=== PATIENT | female | born 1945 | race Caucasian/White ===

== ENCOUNTER 2016-08-04 16:09 | Emergency (ER) | payer MEDICARE, OTHER ==
--- NOTE | 2016-08-04 17:54 | Emergency Department Record ---
History of Present Illness - General Chief Complaint: Cough Stated Complaint: CHEST CONGESTION,COUGH Time Seen by Provider: 08/04/16 17:48 Source: Patient Mode of Arrival: Ambulatory Limitations: No limitations - History of Present Illness Initial Comments: 71 yo female presents with two days of cough, nasal congestion, body aches, productive sputum. It hurts her abdomen to cough. No blood in the sputum. She has not taken her temperature but reports chills. No vomiting. She has had diarrhea. No rash. She is not a smoker and not history of asthma. She had pneumonia many years ago. She did have the flu shot. MD Complaint: Cough, Nasal congestion, Sinus pain, Other Onset/Timin -: Days(s) Consistency: Intermittent - Related Data Home Medications Medication Instructions Recorded Confirmed Last Taken Escitalopram Oxalate [Lexapro] 10 mg PO DAILY 11/17/13 08/04/16 08/04/16 Pioglitazone HCl/Metformin HCl 30 - 1,000 each PO DAILY 11/17/13 08/04/16 [Actoplus Met 15 mg-500 mg Tab] Albuterol Sulfate [Proair Hfa] 1 - 2 puff IH .EVERY 4-6 HOURS PRN 06/04/1508/04 1 Day Ago Omeprazole [Prilosec] 20 mg PO DAILY 08/04/16 08/04/16 08/04/16 Previous Rx's Medication Instructions Recorded Azithromycin [Zithromax] 250 mg PO DAILY #6 tab 08/04/16 Allergies Allergy/AdvReac Type Severity Reaction Status Date / Time ketorolac tromethamine AdvReac DIZZINESS Verified 08/04/16 17:41 [From Toradol] Travel Screening - Travel/Exposure Within Last 30 Days Have you traveled within the last 30 days?: No - Travel/Exposure Within Last Year Have you traveled outside the [place] in the last year?: No - Additonal Travel Details Have you been exposed to anyone with a communicable illness?: No - Travel Symptoms Symptom Screening: None Review of Systems Constitutional: Reports: Chills, Fever, Malaise Eyes: Denies: Eye discharge ENT: Reports: Congestion. Denies: Epistaxis, Throat pain Respiratory: Reports: Cough, Dyspnea. Denies: Hemoptysis, Stridor, Wheezes Cardiovascular: Denies: Chest pain, Palpitations, Syncope Endocrine: Denies: Fatigue Gastrointestinal: Reports: Abdominal pain (with cough). Denies: Diarrhea, Nausea, Vomiting Genitourinary: Denies: Dysuria, Urgency Musculoskeletal: Reports: Myalgia. Denies: Arthralgia, Back pain Skin: Denies: Bruising, Change in color Neurological: Denies: Confusion, Headache Psychiatric: Denies: Anxiety Hematological/Lymphatic: Denies: Blood Clots, Easy bleeding, Easy bruising, Swollen glands Past Medical History - SOCIAL HISTORY Smoking Status: Former smoker Alcohol Use: None Drug Use: None - RESPIRATORY Hx Respiratory Disorders: Yes Hx Bronchitis: Yes Hx Dyspnea: Yes Hx Pneumonia: Yes Comment:: breast ca - CARDIOVASCULAR Hx Cardio Disorders: No - NEURO Hx Neuro Disorders: No - GI Hx GI Disorders: Yes Hx Reflux: Yes - Hx Genitourinary Disorders: No - ENDOCRINE Hx Endocrine Disorders: Yes Hx Diabetes: Yes (Type II) - MUSCULOSKELETAL Hx Musculoskeletal Disorders: Yes - PSYCH Hx Psych Problems: Yes Hx Depression: Yes - HEMATOLOGY/ONCOLOGY Hx Hematology/Oncology Disorders: Yes Hx Cancer: Yes (left breast, skin on right foot) Family Medical History Any Significant Family History?: Yes Hx Alcohol Use: Father Hx Diabetes: Mother Physical Exam - General General Appearance: Alert, Oriented x3, Cooperative, No acute distress Limitations: No limitations - Head Head exam: Atraumatic, Normal inspection - Eye Eye exam: Normal appearance, PERRL. negative: Conjunctival injection, Periorbital swelling - ENT ENT exam: Normal exam, Mucous membranes moist, Normal orophraynx, TM's normal bilaterally Ear exam: Normal external inspection. negative: External canal tenderness Nasal Exam: Discharge, Sinus tenderness. negative: Normal inspection, Dried blood Mouth exam: Normal external inspection, Tongue normal Teeth exam: Normal inspection. negative: Dental caries Throat exam: Normal inspection. negative: Tonsillar erythema, Tonsillar exudate - Neck Neck exam: Normal inspection, Full ROM. negative: Tenderness - Respiratory Respiratory exam: Normal lung sounds bilaterally. negative: Respiratory distress - Cardiovascular Cardiovascular Exam: Regular rate, Normal rhythm, Normal heart sounds - GI/Abdominal GI/Abdominal exam: Soft. negative: Distended - Rectal Rectal exam: Deferred - exam: Deferred - Extremities Extremities exam: Normal inspection, Full ROM, Normal capillary refill. negative: Tenderness - Back Back exam: Reports: Normal inspection, Full ROM. Denies: Muscle spasm, Rash noted, Tenderness - Neurological Neurological exam: Alert, Normal gait, Oriented X3 - Psychiatric Psychiatric exam: Normal affect, Normal mood - Skin Skin exam: Dry, Intact, Normal color, Warm. negative: Cyanosis, Diaphoretic, Erythema Course Vital Signs 08/04/16 17:32 Temperature 97.9 F Pulse Rate 63 Respiratory 20 Rate Blood Pressure 190/83 Pulse Ox 97 - Reevaluation(s) Reevaluation #1: The influenza swabs were negative 08/04/16 18:18 Reevaluation #2: The influenza A and B are negative The CXR was read as acute bronchitis 08/04/16 18:22 Disposition Disposition: Discharge Clinical Impression: Bronchitis Disposition: Home, Self-Care Condition: (1) Good Instructions: Acute Bronchitis (ED) Additional Instructions: Rest and stay well hydrated Return if worse, short of breath, fever or any new concerns Prescriptions: Azithromycin [Zithromax] 250 mg PO DAILY #6 tab Forms: Patient Portal Access Time of Disposition: 18:27
[2016-08-04 18:13] LABS: INFLUENZA A NEGATIVE (NEGATIVE); INFLUENZA B NEGATIVE (NEGATIVE)
--- NOTE | 2016-08-08 14:54 | RADIOLOGY REPORT ---
EXAM: CHEST, TWO VIEWS HISTORY: COUGH, CHILLS, AND CONGESTION. TECHNIQUE: PA and lateral upright views of the chest were obtained. Comparison: 04/26/16. FINDINGS: The heart is borderline enlarged, but stable. The mediastinum and pulmonary vasculature are normal. There is mild prominence of the perihilar interstitial markings with mild associated peribronchial cuffing. The appearance suggests acute bronchitis. No focal or lobar infiltrates are identified. There is no pneumothorax or effusion. Degenerative changes are present within the spine. IMPRESSION: FINDINGS SUGGESTIVE OF ACUTE BRONCHITIS ABOVE. JOB NUMBER: [id number] MTDD
== END 2016-08-04 18:47 | disposition home or self-care (01) ==
LOC: ER 16:09
DX: J20.9 Acute bronchitis, unspecified (principal); Z87.891 Personal history of nicotine dependence
CPT/HCPCS: 71020; 87400; 99283

== ENCOUNTER 2016-09-09 16:34 | Emergency (ER) | payer MEDICARE, OTHER ==
--- NOTE | 2016-09-09 17:53 | Emergency Department Record ---
History of Present Illness - General Chief complaint: Vomiting Stated complaint: vomiting Time Seen by Provider: 09/09/16 17:47 Source: Patient, Family Mode of Arrival: Ambulatory Limitations: No limitations - History of Present Illness Initial comments: 71 yo female presents with nausea, vomtitng and diarrhea that started today. She has vomited multiple times. She has had multiple loose stools as well. She took Immodium and the diarrhea has slowed down. No blood in either the vomiting or the diarrhea. Her daughter was seen in the ER yesterday with similar symptoms of vomiting and diarrhea. Her daughter's symptoms have resolved. No fever. She does have occasional waves of cramps MD complaint: Abdominal pain, Diarrhea, Nausea, Vomiting Onset/Timin -: Hour(s) Description of Vomiting: Watery Associated Abdominal Pain: Yes Location: Periumbilcal Radiation: None Severity: Moderate Quality: Cramping Consistency: Intermittent Improves with: None Worsens with: None Associated Symptoms: Nausea/vomiting - Related Data Home Medications Medication Instructions Recorded Confirmed Last Taken Escitalopram Oxalate [Lexapro] 10 mg PO DAILY 11/17/13 09/09/16 09/09/16 Pioglitazone HCl/Metformin HCl 30 - 1,000 each PO DAILY 11/17/13 09/09/16 [Actoplus Met 15 mg-500 mg Tab] Omeprazole [Prilosec] 20 mg PO DAILY 08/04/16 09/09/16 09/09/16 Previous Rx's Medication Instructions Recorded Ondansetron [Zofran Odt] 4 mg PO Q8H #15 tab.rapdis 09/09/16 Allergies Allergy/AdvReac Type Severity Reaction Status Date / Time ketorolac tromethamine AdvReac DIZZINESS Verified 09/09/16 17:28 [From Toradol] Travel Screening - Travel/Exposure Within Last 30 Days Have you traveled within the last 30 days?: No Review of Systems Constitutional: Reports: Malaise. Denies: Chills, Fever Eyes: Denies: Eye discharge, Eye pain, Photophobia ENT: Denies: Congestion, Throat pain Respiratory: Denies: Cough, Dyspnea, Hemoptysis, Stridor Cardiovascular: Denies: Chest pain, Palpitations, Syncope Endocrine: Reports: Fatigue Gastrointestinal: Reports: Abdominal pain, Diarrhea, Nausea, Vomiting. Denies: Constipation, Hematemesis, Hematochezia, Melena Genitourinary: Denies: Dysuria, Urgency Musculoskeletal: Denies: Arthralgia, Back pain, Joint swelling, Myalgia Skin: Denies: Bruising, Change in color, Rash Neurological: Denies: Headache, Weakness Psychiatric: Denies: Anxiety Hematological/Lymphatic: Denies: Blood Clots, Easy bleeding, Easy bruising, Swollen glands Past Medical History - SOCIAL HISTORY Smoking Status: Former smoker Alcohol Use: None Drug Use: None - RESPIRATORY Hx Respiratory Disorders: Yes Hx Bronchitis: Yes Hx Dyspnea: Yes Hx Pneumonia: Yes Comment:: breast ca - CARDIOVASCULAR Hx Cardio Disorders: No - NEURO Hx Neuro Disorders: No - GI Hx GI Disorders: Yes Hx Reflux: Yes - Hx Genitourinary Disorders: No - ENDOCRINE Hx Endocrine Disorders: Yes Hx Diabetes: Yes (Type II) - MUSCULOSKELETAL Hx Musculoskeletal Disorders: Yes - PSYCH Hx Psych Problems: Yes Hx Depression: Yes - HEMATOLOGY/ONCOLOGY Hx Hematology/Oncology Disorders: Yes Hx Cancer: Yes (left breast, skin on right foot) Family Medical History Any Significant Family History?: Yes Hx Alcohol Use: Father Hx Diabetes: Mother Physical Exam - General General Appearance: Alert, Oriented x3, Cooperative, No acute distress Limitations: No limitations - Head Head exam: Normal inspection - Eye Eye exam: Normal appearance, PERRL. negative: Conjunctival injection, Scleral icterus - ENT ENT exam: Normal exam Ear exam: Normal external inspection Nasal Exam: Normal inspection Mouth exam: Normal external inspection Teeth exam: Normal inspection Throat exam: Normal inspection - Neck Neck exam: Normal inspection, Full ROM. negative: Tenderness - Respiratory Respiratory exam: Normal lung sounds bilaterally. negative: Respiratory distress, Rhonchi, Stridor, Wheezes - Cardiovascular Cardiovascular Exam: Regular rate, Normal rhythm, Normal heart sounds - GI/Abdominal GI/Abdominal exam: Soft, Tenderness (mild diffuse tenderness, non distended) - Rectal Rectal exam: Deferred - exam: Deferred - Extremities Extremities exam: Normal inspection, Full ROM, Normal capillary refill. negative: Tenderness - Back Back exam: Reports: Normal inspection, Full ROM. Denies: CVA tenderness (R), CVA tenderness (L), Muscle spasm, Rash noted, Tenderness - Neurological Neurological exam: Alert, Normal gait, Oriented X3 - Psychiatric Psychiatric exam: Normal affect, Normal mood. negative: Anxious - Skin Skin exam: Dry, Intact, Normal color, Warm Course Vital Signs 09/09/16 17:20 Temperature 98.3 F Pulse Rate [ 73 Pulse Ox Probe] Respiratory 14 Rate Blood Pressure 130/56 [Right Arm] Pulse Ox 95 - Reevaluation(s) Reevaluation #1: The vitals were reviewed No acute changes 09/09/16 17:54 Reevaluation #2: The patient has complete relief of her symptoms. No nausea. No pain Her abdomen is very soft and completely not tender We discussed her WBC count being elevated likely acute phase reaction for sudden NVD. She appears well and may be DC home We discussed immediately return if fever, pain, uncontrolled nausea or vomiting 09/09/16 18:52 Medical Decision Making - Lab Data Result diagrams: 09/09/16 18:13 09/09/16 18:13 Disposition Disposition: Discharge Clinical Impression: Vomiting and diarrhea Disposition: Home, Self-Care Condition: (1) Good Instructions: Acute Nausea and Vomiting (ED), Acute Diarrhea (ED) Additional Instructions: Immediate return if you have fever, pain or uncontrolled vomiting Zofran as directed for nausea Stay hydrated over the next 1-2 days until diet returns to normal. Prescriptions: Ondansetron [Zofran Odt] 4 mg PO Q8H #15 tab.rapdis Forms: Patient Portal Access Time of Disposition: 18:55
[2016-09-09] MEDS ORDERED: 0.9 % SODIUM CHLORIDE 1,000 ML BAG IV ONE (17:55)
[2016-09-09] MEDS ORDERED: 0.9 % SODIUM CHLORIDE 1000ML 1,000 ML IV ONE (17:55)
[2016-09-09] MEDS ORDERED: ONDANSETRON HCL IV 4 MG/2 ML VIAL IV ONE (17:55)
[2016-09-09 18:21] LABS: HEMATOCRIT 45.6 % (35.0-47.0); HEMOGLOBIN 15.6 gm/dl (11.6-16.0); MEAN CELL VOLUME 102.5 fl (81-97); MEAN CORPUSCULAR HEMOGLOBIN 35.1 pg (27-33); MEAN CORPUSCULAR HGB CONC 34.2 g/dl (32-36); MEAN PLATELET VOLUME 9.7 fl (7.4-10.4); PLATELET COUNT 175 K/uL (130-400); RED BLOOD COUNT 4.45 M/uL (3.80-5.40); RED CELL DISTRIBUTION WIDTH 13.2 % (11.5-14.5); WHITE BLOOD COUNT W/O DIFF 16.5 K/uL (4.2-12.2)
[2016-09-09 18:31] LABS: ALB/GLOB RATIO 1.8 (1.1-1.8); ALBUMIN 4.2 gm/dL (3.5-5.0); ALKALINE PHOSPHATASE 80 U/L (38-126); ALT/SGPT 41 U/L (9-52); ANION GAP 8.3 (7-16); AST/SGOT 43 U/L (14-36); BILIRUBIN,TOTAL 1.07 mg/dL (0.2-1.3); BLOOD UREA NITROGEN 13 mg/dL (7-17); CARBON DIOXIDE 26.7 mmol/L (22-30); CREATININE 0.7 mg/dL (0.52-1.04); EST GLOMERULAR FILTRATION RATE > 60 ml/min; GLUCOSE,RANDOM 144 mg/dL (70-110); LIPASE 47 U/L (23-300); TOTAL PROTEIN 6.6 gm/dL (6.3-8.2)
== END 2016-09-09 19:19 | disposition home or self-care (01) ==
LOC: ER 16:34
DX: R11.2 Nausea with vomiting, unspecified (principal); R19.7 Diarrhea, unspecified; R10.33 Periumbilical pain
CPT/HCPCS: 80053; 83690; 85027; 96361; 96374; 99284; J2405; J7030

== ENCOUNTER 2016-10-08 21:38 | Emergency (ER) | payer MEDICARE, OTHER ==
[2016-10-08] MEDS ORDERED: ONDANSETRON HCL IV 4 MG/2 ML VIAL IV ONE (21:54)
[2016-10-08] MEDS ORDERED: MORPHINE SULFATE 5 MG/ML PFS IVP ONE (21:54)
[2016-10-08] MEDS ORDERED: 0.9 % SODIUM CHLORIDE 1,000 ML BAG IV ONE (21:54)
--- NOTE | 2016-10-08 22:00 | Emergency Department Record ---
History of Present Illness - General Chief Complaint: Abdominal Pain Stated Complaint: ABD PAIN AND BACK PAIN Time Seen by Provider: 10/08/16 21:53 Source: Patient, Family Mode of Arrival: Ambulatory Limitations: No limitations - History of Present Illness Initial Comments: 71 yo female presents with left flank pain that radiates to the LLQ. The pain has been on and off the last 3-4 days. No blood in the urine. No fever. No vomiting or diarrhea. He denies prior renal stones. No rash. The pain is some what positional at times. No cough or shortness of breath. No chest pain. Eating does not effect the pain. The pain is positional. It hurts to bend or twist. No mass of hernias that she has noticed MD Complaint: Abdominal pain, Flank pain Onset/Timin -: Days(s) Location: L Flank Radiation: LLQ Migration to: L Flank, LLQ Severity: Severe Quality: Sharp, Stabbing Consistency: Constant Improves With: Rest Worsens With: Movement Associated Symptoms: Denies other symptoms - Related Data Hx Age of Menopause: 49 Home Medications Medication Instructions Recorded Confirmed Last Taken Escitalopram Oxalate [Lexapro] 20 mg PO DAILY 11/17/13 10/08/16 10/08/16 Pioglitazone HCl/Metformin HCl 30 - 1,000 each PO DAILY 11/17/13 10/08/16 [Actoplus Met 15 mg-500 mg Tab] Omeprazole [Prilosec] 20 mg PO DAILY 08/04/16 10/08/16 09/09/16 Allergies Allergy/AdvReac Type Severity Reaction Status Date / Time ketorolac tromethamine AdvReac DIZZINESS Verified 09/09/16 17:28 [From Toradol] Travel Screening - Travel/Exposure Within Last 30 Days Have you traveled within the last 30 days?: No - Travel Symptoms Symptom Screening: None Review of Systems Constitutional: Denies: Chills, Fever, Weakness Eyes: Denies: Eye discharge, Eye pain ENT: Denies: Congestion, Throat pain Respiratory: Denies: Cough, Dyspnea, Hemoptysis, Wheezes Cardiovascular: Denies: Chest pain, Palpitations, Syncope Endocrine: Denies: Fatigue, Polydipsia, Polyuria Gastrointestinal: Reports: As per HPI, Abdominal pain, Nausea. Denies: Constipation, Diarrhea, Hematemesis, Hematochezia, Melena, Vomiting Genitourinary: Denies: Dysuria, Hematuria, Urgency Musculoskeletal: Reports: Back pain. Denies: Arthralgia, Joint swelling, Myalgia, Neck pain Skin: Denies: Bruising, Change in color, Rash Neurological: Denies: Headache Psychiatric: Denies: Anxiety Hematological/Lymphatic: Denies: Easy bleeding, Easy bruising Past Medical History - SOCIAL HISTORY Smoking Status: Former smoker - RESPIRATORY Hx Respiratory Disorders: Yes Hx Bronchitis: Yes Hx Dyspnea: Yes Hx Pneumonia: Yes - CARDIOVASCULAR Hx Cardio Disorders: No - NEURO Hx Neuro Disorders: No - GI Hx GI Disorders: Yes Hx Reflux: Yes - Hx Genitourinary Disorders: No - ENDOCRINE Hx Endocrine Disorders: Yes Hx Diabetes: Yes (Type II) - MUSCULOSKELETAL Hx Musculoskeletal Disorders: Yes - PSYCH Hx Psych Problems: Yes Hx Depression: Yes - HEMATOLOGY/ONCOLOGY Hx Hematology/Oncology Disorders: Yes Hx Cancer: Yes (left breast, skin on right foot) Hx Chemotherapy: Yes Hx Radiation Therapy: Yes Family Medical History Any Significant Family History?: Yes Hx Alcohol Use: Father Hx Diabetes: Mother Physical Exam - General General Appearance: Alert, Oriented x3, Cooperative, No acute distress Limitations: No limitations - Head Head exam: Atraumatic, Normal inspection - Eye Eye exam: Normal appearance, PERRL. negative: Conjunctival injection, Periorbital swelling, Scleral icterus - ENT ENT exam: Normal exam, Mucous membranes moist Ear exam: Normal external inspection Nasal Exam: Normal inspection Mouth exam: Normal external inspection - Neck Neck exam: Normal inspection, Full ROM. negative: Lymphadenopathy, Tenderness - Respiratory Respiratory exam: Normal lung sounds bilaterally. negative: Respiratory distress - Cardiovascular Cardiovascular Exam: Regular rate, Normal rhythm, Normal heart sounds - GI/Abdominal GI/Abdominal exam: Soft, Normal bowel sounds, Tenderness (mildly tender llq and left flank, no RLQ or midline tenderness, very soft abdomen). negative: Diminished bowel sounds, Distended, Guarding, Hernia, Mass, Rigid - Rectal Rectal exam: Deferred - exam: Deferred - Extremities Extremities exam: Normal inspection, Full ROM, Normal capillary refill. negative: Tenderness - Back Back exam: Reports: CVA tenderness (L), Muscle spasm, Paraspinal tenderness - Neurological Neurological exam: Alert, Normal gait, Oriented X3 - Psychiatric Psychiatric exam: Normal affect, Normal mood. negative: Agitated, Anxious - Skin Skin exam: Dry, Intact, Normal color, Warm Course Vital Signs 10/08/16 21:45 Temperature 97.9 F Pulse Rate 60 Respiratory 18 Rate Blood Pressure 198/77 Pulse Ox 98 - Reevaluation(s) Reevaluation #1: The labs were reviewed WBC 13.2. Again smudge cells noted (seen as far back as 2010) No acute changes of CMP No acute changes of the UA. 10/08/16 22:39 Reevaluation #2: The CT scan result was reviewed No acute process or blockage, no renal stones, hernias unchanged as before We discussed the results as well as the smudge cells on the CBC. The patient follows with Dr Fox and was instructed to discuss this at her next appt. 10/08/16 22:51 Medical Decision Making - Lab Data Result diagrams: 10/08/16 22:15 10/08/16 22:15 Disposition Disposition: Discharge Clinical Impression: Left flank pain Disposition: Home, Self-Care Condition: (1) Good Instructions: Abdominal Pain (ED) Additional Instructions: Return to the ER if you have worsening or uncontrolled pain Call your doctor tomorrow for close follow up Forms: Patient Portal Access Time of Disposition: 22:54
[2016-10-08 22:08] LABS: URINE APPEARANCE CLEAR; URINE BILIRUBIN NEGATIVE (NEGATIVE); URINE BLOOD NEGATIVE (NEGATIVE); URINE COLOR YELLOW; URINE GLUCOSE (UA) NEGATIVE (NEGATIVE); URINE KETONE NEGATIVE (NEGATIVE); URINE LEUKOCYTE ESTERASE NEGATIVE (NEGATIVE); URINE NITRITE NEGATIVE (NEGATIVE); URINE PROTEIN NEGATIVE (NEGATIVE)
[2016-10-08 22:19] LABS: HEMATOCRIT 41.9 % (35.0-47.0); HEMOGLOBIN 14.3 gm/dl (11.6-16.0); MEAN CELL VOLUME 102.4 fl (81-97); MEAN CORPUSCULAR HGB CONC 34.1 g/dl (32-36); MEAN PLATELET VOLUME 9.8 fl (7.4-10.4); PLATELET COUNT 184 K/uL (130-400); RED BLOOD COUNT 4.09 M/uL (3.80-5.40); RED CELL DISTRIBUTION WIDTH 13.4 % (11.5-14.5); WHITE BLOOD COUNT W/O DIFF 13.2 K/uL (4.2-12.2)
[2016-10-08 22:30] LABS: ALB/GLOB RATIO 1.6 (1.1-1.8); ALBUMIN 4.2 gm/dL (3.5-5.0); ALKALINE PHOSPHATASE 71 U/L (38-126); ALT/SGPT 37 U/L (9-52); ANION GAP 8.9 (7-16); AST/SGOT 31 U/L (14-36); BLOOD UREA NITROGEN 13 mg/dL (7-17); CARBON DIOXIDE 24.1 mmol/L (22-30); CREATININE 0.7 mg/dL (0.52-1.04); EST GLOMERULAR FILTRATION RATE > 60 ml/min; GLUCOSE,RANDOM 162 mg/dL (70-110); LIPASE 37 U/L (23-300); TOTAL PROTEIN 6.9 gm/dL (6.3-8.2)
== END 2016-10-08 23:04 | disposition home or self-care (01) ==
LOC: ER 21:38
DX: R10.32 Left lower quadrant pain (principal); M54.5 Low back pain; Z85.3 Personal history of malignant neoplasm of breast; Z85.828 Personal history of other malignant neoplasm of skin
CPT/HCPCS: 99284 ×2; 96374; 96375; 83690; 80053; 81003; 85027; 74176; J2405; J2270; J7030

== ENCOUNTER 2016-10-21 09:42 | Day surgery (SDC) | payer MEDICARE, OTHER | END 2016-10-21 13:31 | disposition home or self-care (01) | LOC: HOP 09:42 | PROVIDERS: ATTEND Internal Medicine Gastroenterology | DX: Z53.9 Procedure and treatment not carried out, unspecified reason (principal) ==

== ENCOUNTER 2016-10-24 14:38 | Emergency (ER) | payer MEDICARE, OTHER ==
--- NOTE | 2016-10-24 15:05 | Emergency Department Record ---
History of Present Illness - General Chief Complaint: Fall Injury Stated Complaint: FALL/LOWER BACK PAIN Time Seen by Provider: 10/24/16 15:05 Source: Patient Mode of Arrival: Ambulatory Limitations: No limitations - History of Present Illness Initial Comments: The patient fell 2 days ago and injured her back while in the bathroom. She states she had been having pain in the low back for a couple of weeks. The pain is mostly gone when lying or sitting still but becomes much worse with any movement. There is no pain going down the legs and no leg numbness, weakness, or any bowel or bladder issues. 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 Witnessed: No Place Fall Occurred: Home Loss of Consciousness: None Prolonged Down Time?: No Location: Back, Other Severity: Severe Severity scale (1-10): 10 Quality: Sharp Context: History of frequent falls Associated Symptoms: Denies - [place] Coma Scale Eye Response: (4) Open spontaneously Motor Response: (6) Obeys commands Verbal Response: (5) Oriented [place] Total: 15 - Related Data Home Medications Medication Instructions Recorded Confirmed Last Taken Escitalopram Oxalate [Lexapro] 20 mg PO DAILY 11/17/13 10/24/16 10/08/16 Pioglitazone HCl/Metformin HCl 30 - 1,000 each PO DAILY 11/17/13 10/24/16 [Actoplus Met 15 mg-500 mg Tab] Omeprazole [Prilosec] 20 mg PO DAILY 08/04/16 10/24/16 09/09/16 Allergies Allergy/AdvReac Type Severity Reaction Status Date / Time ketorolac tromethamine AdvReac DIZZINESS Verified 09/09/16 17:28 [From Toradol] Travel Screening - Travel/Exposure Within Last 30 Days Have you traveled within the last 30 days?: No Review of Systems Constitutional: Denies: Chills, Fever Eyes: Denies: Eye discharge ENT: Denies: Congestion Respiratory: Denies: Cough, Dyspnea Cardiovascular: Denies: Chest pain Past Medical History - SOCIAL HISTORY Smoking Status: Former smoker Alcohol Use: None Drug Use: None - RESPIRATORY Hx Respiratory Disorders: Yes Hx Bronchitis: Yes Hx Dyspnea: Yes Hx Pneumonia: Yes - CARDIOVASCULAR Hx Cardio Disorders: No - NEURO Hx Neuro Disorders: No - GI Hx GI Disorders: Yes Hx Reflux: Yes - Hx Genitourinary Disorders: No - ENDOCRINE Hx Endocrine Disorders: Yes Hx Diabetes: Yes (Type II) - MUSCULOSKELETAL Hx Musculoskeletal Disorders: Yes - PSYCH Hx Psych Problems: Yes Hx Depression: Yes - HEMATOLOGY/ONCOLOGY Hx Hematology/Oncology Disorders: Yes Hx Chemotherapy: Yes Hx Radiation Therapy: Yes Family Medical History Any Significant Family History?: Yes Hx Alcohol Use: Father Hx Diabetes: Mother Physical Exam - General General Appearance: Alert, Oriented x3, Cooperative, No acute distress - Head Head exam: Atraumatic, Normocephalic, Normal inspection - Eye Eye exam: Normal appearance, PERRL - Neck Neck exam: Normal inspection, Full ROM. negative: Tenderness - Respiratory Respiratory exam: Normal lung sounds bilaterally. negative: Respiratory distress - Cardiovascular Cardiovascular Exam: Regular rate, Normal rhythm, Normal heart sounds - GI/Abdominal GI/Abdominal exam: Soft, Normal bowel sounds. negative: Tenderness - Extremities Extremities exam: Normal inspection, Full ROM, Normal capillary refill. negative: Tenderness - Back Back exam: Reports: Normal inspection, Paraspinal tenderness, Vertebral tenderness (There is L3-5 tenderness in the midline and paraspinal area.), Other (Neg SLR bilaterally.) - Neurological Neurological exam: Alert, Normal gait, Oriented X3, Reflexes normal. negative: Abnormal gait, Altered, Motor sensory deficit - Psychiatric Psychiatric exam: negative: Anxious Course Vital Signs 10/24/16 14:44 Temperature 97.8 F Pulse Rate 70 Respiratory 20 Rate Blood Pressure 192/86 Pulse Ox 96 - Reevaluation(s) Reevaluation #1: The patient is doing much better after getting back from xray. She states her pain is much improved and she is up walking with no difficulty. I did explain to her that the xrays do not indicate any acute injury. She is to see her PCP next week if not better and return to the ER if worse. 10/24/16 15:58 Medical Decision Making - Data Complexity MDM Data: X-Ray Ordered and/or Reviewed - Radiology Data Radiology results: Report reviewed (LS Spine: Neg.) Disposition Disposition: Discharge Clinical Impression: Lumbar strain Qualifiers: Encounter type: initial encounter Qualified Code(s): S39.012A - Strain of muscle, fascia and tendon of lower back, initial encounter Disposition: Home, Self-Care Condition: (1) Good Instructions: Fall Prevention for Older Adults (ED), Acute Low Back Pain (ED) Additional Instructions: Please take Tylenol for pain. Please see your PCP if not better by next week. Return to the ER for any increased pain, any leg weakness, numbness or any bowel or bladder incontinence. Forms: Patient Portal Access Time of Disposition: 16:00
[2016-10-24] MEDS ORDERED: ACETAMINOPHEN 325 MG TAB PO ONE (15:07)
== END 2016-10-24 16:20 | disposition home or self-care (01) ==
LOC: ER 14:38
DX: S39.012A Strain of muscle, fascia and tendon of lower back, initial encounter (principal); W18.30XA Fall on same level, unspecified, initial encounter; Z91.81 History of falling; Y92.002 Bathroom of unspecified non-institutional (private) residence as the place of occurrence of the external cause
CPT/HCPCS: 72110; 99283

== ENCOUNTER 2016-10-29 20:06 | Observation (INO) | payer MEDICARE, OTHER ==
[2016-10-29] MEDS ORDERED: ASPIRIN 81 MG CHEWABLE TABLET PO ONE (20:31)
--- NOTE | 2016-10-29 20:33 | Emergency Department Record ---
History of Present Illness - General Chief Complaint: Chest Pain Stated Complaint: CHEST PAIN Time Seen by Provider: 10/29/16 20:30 Source: Patient Mode of Arrival: EMS Limitations: No limitations - History of Present Illness Initial Comments: 71 yo female presents to ED with a CC of chest pressure tonight. Patient reports that she has been under a lot of emotional stress tonight, smoked a cigarette which eased her stress somewhat before her chest pressure began. Patient reports taking Nitro [employer] which improved her symptoms. Patient denies previous heart problems, and reports negative heart cath 2 years ago. Patient reports history of HTN and DM previously. MD Complaint: Chest pain Onset/Timin -: Hour(s) Onset: After eating Pain Location: Substernal Pain Radiation: None Severity: Mild Severity scale (1-10): 7 Consistency: Now resolved Improves With: Nothing Worsens With: Nothing Context: Other Anginal Symptoms: Other Treatments Prior to Arrival: Nitroglycerin - Related Data Home Medications Medication Instructions Recorded Confirmed Last Taken Escitalopram Oxalate [Lexapro] 20 mg PO DAILY 11/17/13 10/24/16 10/08/16 Pioglitazone HCl/Metformin HCl 30 - 1,000 each PO DAILY 11/17/13 10/24/16 [Actoplus Met 15 mg-500 mg Tab] Omeprazole [Prilosec] 20 mg PO DAILY 08/04/16 10/24/16 09/09/16 Allergies Allergy/AdvReac Type Severity Reaction Status Date / Time ketorolac tromethamine AdvReac DIZZINESS Verified 09/09/16 17:28 [From Toradol] Travel Screening - Travel/Exposure Within Last 30 Days Have you traveled within the last 30 days?: No - Travel/Exposure Within Last Year Have you traveled outside the [place] in the last year?: No - Additonal Travel Details Have you been exposed to anyone with a communicable illness?: No - Travel Symptoms Symptom Screening: None Review of Systems Constitutional: Denies: Chills, Fever, Malaise, Night sweats Eyes: Denies: Eye discharge, Eye pain ENT: Denies: Congestion, Ear pain, Epistaxis Respiratory: Denies: Cough, Dyspnea Cardiovascular: Reports: Chest pain. Denies: Dyspnea on exertion, Palpitations Endocrine: Denies: Fatigue, Heat or cold intolerance Gastrointestinal: Denies: Abdominal pain, Nausea, Vomiting Genitourinary: Denies: Frequency, Hematuria, Incontinence, Retention Musculoskeletal: Denies: Arthralgia, Back pain, Gout, Joint swelling Skin: Denies: Bruising, Change in color Neurological: Denies: Abnormal gait, Confusion, Headache, Seizure Psychiatric: Denies: Anxiety Hematological/Lymphatic: Denies: Anemia, Blood Clots Past Medical History - SOCIAL HISTORY Smoking Status: Former smoker Alcohol Use: None Drug Use: None - RESPIRATORY Hx Respiratory Disorders: Yes Hx Bronchitis: Yes Hx Dyspnea: Yes Hx Pneumonia: Yes - CARDIOVASCULAR Hx Cardio Disorders: No - NEURO Hx Neuro Disorders: No - GI Hx GI Disorders: Yes Hx Reflux: Yes - Hx Genitourinary Disorders: No - ENDOCRINE Hx Endocrine Disorders: Yes Hx Diabetes: Yes (Type II) - MUSCULOSKELETAL Hx Musculoskeletal Disorders: Yes - PSYCH Hx Psych Problems: Yes Hx Depression: Yes - HEMATOLOGY/ONCOLOGY Hx Hematology/Oncology Disorders: Yes Hx Chemotherapy: Yes Hx Radiation Therapy: Yes Family Medical History Any Significant Family History?: Yes Hx Alcohol Use: Father Hx Diabetes: Mother Physical Exam - General General Appearance: Alert, Oriented x3, Cooperative, No acute distress, Other ( pain-free currently, eating pudding cup on examination) - Head Head exam: Atraumatic, Normocephalic, Normal inspection Head exam detail: negative: Abrasion, Contusion, Alonso's sign, General tenderness, Hematoma, Laceration - Eye Eye exam: Normal appearance. negative: Conjunctival injection, Periorbital swelling, Periorbital tenderness, Scleral icterus - ENT Ear exam: negative: Auricular hematoma, Auricular trauma Nasal Exam: negative: Active bleeding, Discharge, Dried blood, Foreign body Mouth exam: negative: Drooling, Laceration, Muffled voice, Tongue elevation - Neck Neck exam: Normal inspection. negative: Meningismus, Tenderness - Respiratory Respiratory exam: Normal lung sounds bilaterally. negative: Rales, Respiratory distress, Rhonchi, Stridor - Cardiovascular Cardiovascular Exam: Regular rate, Normal rhythm, Normal heart sounds - GI/Abdominal GI/Abdominal exam: Soft. negative: Rebound, Rigid, Tenderness - Rectal Rectal exam: Deferred - exam: Deferred - Extremities Extremities exam: Normal inspection. negative: Calf tenderness, Pedal edema, Tenderness - Back Back exam: Denies: CVA tenderness (R), CVA tenderness (L) - Neurological Neurological exam: Alert, Normal gait, Oriented X3 - Psychiatric Psychiatric exam: Normal affect, Normal mood - Skin Skin exam: Normal color. negative: Abrasion Type of lesion: negative: abrasion Course Vital Signs 10/29/16 20:13 Temperature 98.3 F Pulse Rate 69 Respiratory 20 Rate Blood Pressure 158/76 Pulse Ox 94 L - Reevaluation(s) Reevaluation #1: 10/29/16 20:32 EKG: NSR 68 Normal axis, normal intervals Nonspecific ST changes AVL, V2-V4 Reevaluation #2: 10/29/16 21:15 Labs reviewed, Troponin is negative, WBC 11.1 with 63% Lymphocytes. Labs are otherwise grossly unremarkable for an acute process. Reevaluation #3: 10/29/16 21:18 CXR: No acute process Labs reviewed with the patient, she is resting pain-free at this time. Will admit for cardiac evaluation. Reevaluation #4: 10/29/16 21:21 Case was discussed with Bhakti Mendoza, will accept admission. Medical Decision Making - Lab Data Result diagrams: 10/29/16 20:25 10/29/16 20:25 Disposition Disposition: Admit Clinical Impression: Chest pain Qualifiers: Chest pain type: unspecified Qualified Code(s): R07.9 - Chest pain, unspecified Disposition: Still a Patient at [facility] Decision to Admit: Admit from ER Decision to Admit Date: 10/29/16 Decision to Admit Time: 21:16 Condition: (2) Stable Instructions: Chest Pain (ED) Forms: Patient Portal Access Time of Disposition: 21:16
[2016-10-29 20:45] LABS: HEMATOCRIT 40.9 % (35.0-47.0); HEMOGLOBIN 13.3 gm/dl (11.6-16.0); MEAN CELL VOLUME 103.3 fl (81-97); MEAN CORPUSCULAR HEMOGLOBIN 33.6 pg (27-33); MEAN CORPUSCULAR HGB CONC 32.5 g/dl (32-36); MEAN PLATELET VOLUME 9.8 fl (7.4-10.4); PLATELET COUNT 199 K/uL (130-400); RED BLOOD COUNT 3.96 M/uL (3.80-5.40); RED CELL DISTRIBUTION WIDTH 13.2 % (11.5-14.5); WHITE BLOOD COUNT W/O DIFF 11.1 K/uL (4.2-12.2)
[2016-10-29 20:57] LABS: ALB/GLOB RATIO 1.7 (1.1-1.8); ALKALINE PHOSPHATASE 70 U/L (38-126); ALT/SGPT 37 U/L (9-52); ANION GAP 9.9 (7-16); AST/SGOT 33 U/L (14-36); BILIRUBIN,TOTAL 0.73 mg/dL (0.2-1.3); BLOOD UREA NITROGEN 15 mg/dL (7-17); CARBON DIOXIDE 23.1 mmol/L (22-30); CREATINE PHOSPHOKINASE 53 U/L (30-135); CREATININE 0.7 mg/dL (0.52-1.04); EST GLOMERULAR FILTRATION RATE > 60 ml/min; GLUCOSE,RANDOM 136 mg/dL (70-110); TOTAL PROTEIN 6.4 gm/dL (6.3-8.2)
[2016-10-29 21:07] LABS: CKMB 0.6 ug/L (0-6)
[2016-10-29 21:08] LABS: TROPONIN I < 0.012 ng/mL (0.00-0.034)
[2016-10-29] MEDS ORDERED: ACETAMINOPHEN 500 MG TABLET PO PRN (22:28)
[2016-10-29] MEDS ORDERED: 0.9 % SODIUM CHLORIDE 1000ML 1,000 ML IV PRN (22:28)
[2016-10-29] MEDS ORDERED: NITROGLYCERIN 0.4MG SL TABLET #25 BTL SL PRN (22:28)
--- NOTE | 2016-10-30 06:54 | History & Physical ---
History of Present Illness - Date of Service Date of Service for History & Physical: 10/30/16 - History of Present Illness Admitting Diagnosis: Chest pain. HTN. DM. CLL History of Present Illness: 71 yo female admitted for chest pain. PMHx of obesity, breast cancer (01/2011, s /p lumpectomy, chemo & RXT), previous smoker (1pp week x 10 years, quit 30 years ago), GERD, type 2 DM, depression and anxiety. Cardiac risk factors: DM, HTN, mother with [place] in 70s. Patient presented to our ED w/ cc of chest pain. location is substernal. described as sharp. states she felt like someone was sitting on her chest. Radiated to her back. Aggravated by stress. Alleviated with smoking a cigarette and nitro in the ER. Denies any additional associated symptoms. upon presentation, VSS. CBC, CMP relatively unremarkable. MCV 103.3, lymphocytes 63. glucose 136. CE negative x 2. EKG: NSR 68, normal axis, normal intervals, non specific ST changes AVL, V2- V4. CXR: NAP. Patient given Nitro in the ED which relieved CP. Patient placed on tele and admitted for cardiac evaluation. 10/30/16: Patient lying in bed comfortably. Denies any CP since receiving Nitro in the ER. Telemetry demonstrates NSR. Denies fever, chills, nausea, vomiting, uncontrolled acid reflux, dysuria, hematuria, abdominal pain, rash, dizziness, lightheadedness, LE swelling, cough, headache, change in gait or change in vision. Denies h/o CVA or [place]. States she had a cardiac cath 1-2 years ago though no h/o stenting. PCP: Dr. Donnelly Patient following Oncology every 6 months. Travel Screening - Travel/Exposure Within Last 30 Days Have you traveled within the last 30 days?: No - Travel/Exposure Within Last Year Have you traveled outside the [place] in the last year?: No - Additonal Travel Details Have you been exposed to anyone with a communicable illness?: No - Travel Symptoms Symptom Screening: None Review of Systems Constitutional: Denies: Chills, Fever, Malaise, Night sweats Eyes: Denies: Eye discharge, Eye pain ENT: Denies: Congestion, Ear pain, Epistaxis Respiratory: Denies: Cough, Dyspnea, Wheezes Cardiovascular: Reports: Chest pain. Denies: Dyspnea on exertion, Edema, Palpitations Endocrine: Denies: Fatigue, Heat or cold intolerance Gastrointestinal: Denies: Abdominal pain, Nausea, Vomiting Genitourinary: Denies: Frequency, Hematuria, Incontinence, Retention Musculoskeletal: Denies: Arthralgia, Back pain, Gout, Joint swelling Skin: Denies: Bruising, Change in color Neurological: Denies: Abnormal gait, Confusion, Headache, Seizure Psychiatric: Denies: Anxiety Hematological/Lymphatic: Denies: Anemia, Blood Clots Past Medical History - SOCIAL HISTORY Smoking Status: Former smoker Alcohol Use: Occassional Drug Use: None - RESPIRATORY Hx Respiratory Disorders: Yes Hx Bronchitis: Yes Hx Dyspnea: Yes Hx Pneumonia: Yes - CARDIOVASCULAR Hx Cardio Disorders: No - NEURO Hx Neuro Disorders: No - GI Hx GI Disorders: Yes Hx Reflux: Yes - Hx Genitourinary Disorders: No - ENDOCRINE Hx Endocrine Disorders: Yes Hx Diabetes: Yes (Type II) - MUSCULOSKELETAL Hx Musculoskeletal Disorders: Yes - PSYCH Hx Psych Problems: Yes Hx Depression: Yes - HEMATOLOGY/ONCOLOGY Hx Hematology/Oncology Disorders: Yes Hx Chemotherapy: Yes Hx Radiation Therapy: Yes Family Medical History Any Significant Family History?: Yes Hx Alcohol Use: Father Hx Diabetes: Mother H&P Meds/Allergies - Allergies Allergies: Allergies Allergy/AdvReac Type Severity Reaction Status Date / Time ketorolac tromethamine AdvReac DIZZINESS Verified 09/09/16 17:28 [From Toradol] - Home Medications Home Medications Medication Instructions Recorded Confirmed Last Taken Escitalopram Oxalate [Lexapro] 20 mg PO DAILY 11/17/13 10/29/16 10/29/16 10:00 Pioglitazone HCl/Metformin HCl 15 - 500 each PO BID 11/17/13 10/29/16 10/29/16 10:00 [Actoplus Met 15 mg-500 mg Tab] Omeprazole [Prilosec] 20 mg PO DAILY 08/04/16 10/29/16 10/29/16 10:00 - Active Medications Active Medications: Current Medications Acetaminophen (Tylenol 500mg Tab) 1,000 mg PO Q6H PRN PRN Reason: PAIN/TEMP Aspirin (Ecotrin (Ec)) 325 mg PO DAILY [place] Escitalopram Oxalate (Lexapro) 20 mg PO DAILY [place] Sodium Chloride () 1,000 mls @ 15 mls/hr IV .Q24H PRN PRN Reason: LARGE VOLUME IV Metformin HCl (Glucophage Ir) 500 mg PO DAILYAC COUNT INCLUDES THE [facility] Last Admin: 10/30/16 06:38 Dose: 500 mg Nitroglycerin (Nitrostat 0.4mg) 0.4 mg SL Q5MIN PRN PRN Reason: CHEST PAIN Pantoprazole Sodium (Protonix) 40 mg PO DAILYAC COUNT INCLUDES THE [facility] Last Admin: 10/30/16 06:38 Dose: 40 mg Pioglitazone HCl (Actos) 15 mg PO DAILYAC COUNT INCLUDES THE [facility] Last Admin: 10/30/16 06:38 Dose: 15 mg Physical Exam - Vital Signs Vital Signs: Vital Signs - Last 24 Hrs Temp Pulse Resp BP Pulse Ox 10/30/16 05:00 97.7 F 58 L 20 154/83 98 10/30/16 02:06 97.4 F L 61 18 145/72 98 10/29/16 22:28 97.5 F L 60 20 174/69 97 - General General Appearance: Alert, Oriented x3, Cooperative, No acute distress Limitations: No limitations - Head Head exam: Atraumatic, Normocephalic, Normal inspection Head exam detail: negative: Abrasion, Contusion, Alonso's sign, General tenderness, Hematoma, Laceration - Eye Eye exam: Normal appearance. negative: Conjunctival injection, Periorbital swelling, Periorbital tenderness, Scleral icterus - ENT Ear exam: negative: Auricular hematoma, Auricular trauma Nasal Exam: negative: Active bleeding, Discharge, Dried blood, Foreign body Mouth exam: negative: Drooling, Laceration, Muffled voice, Tongue elevation - Neck Neck exam: Normal inspection. negative: Meningismus, Tenderness - Respiratory Respiratory exam: Normal lung sounds bilaterally. negative: Rales, Respiratory distress, Rhonchi, Stridor - Cardiovascular Cardiovascular Exam: Regular rate, Normal rhythm, Normal heart sounds - GI/Abdominal GI/Abdominal exam: Soft, Normal bowel sounds. negative: Rebound, Rigid, Tenderness - Rectal Rectal exam: Deferred - exam: Deferred - Extremities Extremities exam: Normal inspection. negative: Calf tenderness, Pedal edema, Tenderness - Back Back exam: Denies: CVA tenderness (R), CVA tenderness (L) - Neurological Neurological exam: Alert, Normal gait, Oriented X3 - Psychiatric Psychiatric exam: Normal affect, Normal mood - Skin Skin exam: Normal color. negative: Abrasion Type of lesion: negative: abrasion Results - Labs Result Diagrams: 10/29/16 20:25 10/29/16 20:25 Labs Last 24 Hours: Laboratory Results - last 24 hr 10/30/16 04:52 Troponin I < 0.012 VTE H&P Assessment - Risk for VTE Risk for VTE: Yes Risk Level: Low (age, decreased mobility) Risk Assessment Date: 10/30/16 Risk Assessment Time: 10:00 VTE Orders Placed or Will Be Placed: Yes Plan - Detailed Diagnosis and Plan (1) Chest pain Current Visit: Yes Status: Acute Qualifiers: Chest pain type: unspecified Qualified Code(s): R07.9 - Chest pain, unspecified Base Code: R07.9 - CHEST PAIN, UNSPECIFIED Comment: 10/30/16: cardiac vs. acid reflux vs. anxiety vs. other? - troponin negative x 2 - EKG: NSR 68, normal axis, normal intervals, nonspecific ST changes AVL, V2-v4 - CP resolved with Nitro in the ED - continue Tele - cardiology consult- Dr. Beltran - lipid panel - CTA 04/2016: no PE, coronary a calcification, L proximal subclavian a- 50% stenosis, mild dilation of main pulmonary a. (2) DVT prophylaxis Current Visit: Yes Status: Acute Base Code: [id number] - Comment: 10/30/16: low- moderate risk noting age, obesity and decreased mobility. Lovenox 40 mg sq daily. (3) Full code status Current Visit: Yes Status: Acute Base Code: Z78.9 - OTHER SPECIFIED HEALTH STATUS Comment: 10/30/16: pt is full code
[2016-10-30] MEDS ORDERED: PANTOPRAZOLE SODIUM 40 MG TABLET PO SCH (07:00)
[2016-10-30] MEDS ORDERED: METFORMIN 500 MG TABLET PO SCH (07:00)
[2016-10-30] MEDS ORDERED: PIOGLITAZONE HCL 15 MG TABLET PO SCH (07:00)
--- NOTE | 2016-10-30 08:40 | RADIOLOGY REPORT ---
EXAM: CHEST, TWO VIEWS HISTORY: CHEST PAIN. TECHNIQUE: Frontal and lateral views of the chest were obtained. Comparison: 08/04/16 chest. FINDINGS: The heart size is stable. Atheromatous change of the thoracic aorta. Osteopenia. The lungs are clear. No pneumothorax. IMPRESSION: NO ACUTE CARDIOPULMONARY PROCESS. JOB NUMBER: [id number] MTDD
[2016-10-30] MEDS ORDERED: ESCITALOPRAM 10 MG TABLET PO SCH (10:00)
[2016-10-30] MEDS ORDERED: ASPIRIN 325 MG TAB ENTERIC-COATED PO SCH (10:00)
[2016-10-30] MEDS ORDERED: ENOXAPARIN 40 MG/0.4 ML SYR SQ SCH (10:45)
--- NOTE | 2016-10-30 11:05 | Discharge Summary ---
Providers Discharge Summary Date: 10/30/16 Date of admission: 10/29/16 22:10 Expected Date of Discharge: 10/30/16 Attending physician: TERVOR TAVERAS Physical Exam - Vital Signs Vital Signs: Vital Signs - Last 24 Hrs Temp Pulse Pulse Resp BP Pulse Ox 10/30/16 09:00 60 20 10/30/16 05:00 97.7 F 58 L 20 154/83 98 10/30/16 02:06 97.4 F L 61 18 145/72 98 10/29/16 22:28 97.5 F L 60 20 174/69 97 - General General Appearance: Alert, Oriented x3, Cooperative, No acute distress Limitations: No limitations - Head Head exam: Atraumatic, Normocephalic, Normal inspection Head exam detail: negative: Abrasion, Contusion, Alonso's sign, General tenderness, Hematoma, Laceration - Eye Eye exam: Normal appearance. negative: Conjunctival injection, Periorbital swelling, Periorbital tenderness, Scleral icterus - ENT Ear exam: negative: Auricular hematoma, Auricular trauma Nasal Exam: negative: Active bleeding, Discharge, Dried blood, Foreign body Mouth exam: negative: Drooling, Laceration, Muffled voice, Tongue elevation - Neck Neck exam: Normal inspection. negative: Meningismus, Tenderness - Respiratory Respiratory exam: Normal lung sounds bilaterally. negative: Rales, Respiratory distress, Rhonchi, Stridor - Cardiovascular Cardiovascular Exam: Regular rate, Normal rhythm, Normal heart sounds - GI/Abdominal GI/Abdominal exam: Soft, Normal bowel sounds. negative: Rebound, Rigid, Tenderness - Rectal Rectal exam: Deferred - exam: Deferred - Extremities Extremities exam: Normal inspection. negative: Calf tenderness, Pedal edema, Tenderness - Back Back exam: Denies: CVA tenderness (R), CVA tenderness (L) - Neurological Neurological exam: Alert, Normal gait, Oriented X3 - Psychiatric Psychiatric exam: Normal affect, Normal mood - Skin Skin exam: Normal color. negative: Abrasion Type of lesion: negative: abrasion Hospitalization - Hospitalization Admission Diagnosis: Chest pain. HTN. DM. CLL - Problem List/Discharge Diagnosis (1) Chest pain Current Visit: Yes Status: Acute Discharge Diagnosis: Chest pain type: unspecified Qualified Code(s): R07.9 - Chest pain, unspecified Base Code: R07.9 - CHEST PAIN, UNSPECIFIED Comment: 10/30/16: cardiac vs. acid reflux vs. anxiety vs. other? - troponin negative x 3 - EKG: NSR 68, normal axis, normal intervals, nonspecific ST changes AVL, V2-v4 - CTA 04/2016: no PE, coronary a calcification, L proximal subclavian a- 50% stenosis, mild dilation of main pulmonary a. - Dr. Beltran reports patient with stress echo, heart cath in 2014. - patient chest pain has resolved - he recommends patient be started on atorvastatin 40 mg and follow up with him in one month. - verbally, patient cleared by cardiology for d/c home from cardiac stand point. - patient agree's to return to the hospital sooner re any new or worsening symptoms (2) Full code status Current Visit: Yes Status: Acute Base Code: Z78.9 - OTHER SPECIFIED HEALTH STATUS Comment: 10/30/16: pt remained full code - Hospitalization Course Disposition: Home, Self-Care Hospital Course: 71 yo female admitted for chest pain. PMHx of obesity, breast cancer (01/2011, s /p lumpectomy, chemo & RXT), previous smoker (1pp week x 10 years, quit 30 years ago), GERD, type 2 DM, depression and anxiety. Cardiac risk factors: DM, HTN, mother with [place] in 70s. Patient presented to our ED w/ cc of chest pain. location is substernal. described as sharp. states she felt like someone was sitting on her chest. Radiated to her back. Aggravated by stress. Alleviated with smoking a cigarette and nitro in the ER. Denies any additional associated symptoms. upon presentation, VSS. CBC, CMP relatively unremarkable. MCV 103.3, lymphocytes 63. glucose 136. CE negative x 2. EKG: NSR 68, normal axis, normal intervals, non specific ST changes AVL, V2- V4. CXR: NAP. Patient given Nitro in the ED which relieved CP. Patient placed on tele and admitted for cardiac evaluation. 10/30/16: Patient lying in bed comfortably. Denies any CP since receiving Nitro in the ER. Telemetry demonstrates NSR. Denies fever, chills, nausea, vomiting, uncontrolled acid reflux, dysuria, hematuria, abdominal pain, rash, dizziness, lightheadedness, LE swelling, cough, headache, change in gait or change in vision. Denies h/o CVA or [place]. States she had a cardiac cath 1-2 years ago though no h/o stenting. PCP: Dr. Donnelly Patient following Oncology every 6 months. Condition at Discharge: (2) Stable Discharge Medications - Discharge Medications Prescriptions: Atorvastatin Calcium 40 mg PO DAILY #30 tablet Home Medications: Ambulatory Orders Escitalopram Oxalate [Lexapro] 20 mg PO DAILY 11/17/13 [Last Taken 10/29/16 10: 00] Pioglitazone HCl/Metformin HCl [Actoplus Met 15 mg-500 mg Tab] 15 - 500 each PO BID 11/17/13 [Last Taken 10/29/16 10:00] Omeprazole [Prilosec] 20 mg PO DAILY 08/04/16 [Last Taken 10/29/16 10:00] Atorvastatin Calcium 40 mg PO DAILY #30 tablet 10/30/16 [Last Taken Unknown] Discharge Plan - Discharge Instructions Activity at Discharge: Increase Activity as Tolerated Diet at Discharge: Other (cardiac) Instructions: Chest Pain (ED) Additional Instructions: Continue current medications. Dr. Beltran added a new medication- Atorvastatin 40 mg daily. 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 You will need to follow up with Dr. Donnelly Friday11/13/16 @ 10:[address] Beltran would like you to follow up with him in one month. I've contact his office and they will be contacting you to schedule this visit in one month. If you don't hear from their office, you need to contact them to schedule within the next 1-2 weeks. Please return to the hospital re any new or worsening symptoms (i.e: dizziness, lightheadedness, chest pain, shortness of breath, etc).
[2016-10-30 11:12] LABS: LDL CHOLESTEROL/MEASURED 93.7 mg/dL (0-100)
--- NOTE | 2016-10-30 17:00 | Medical Records Consult ---
DATE OF CONSULTATION: 10/30/2016 REASON FOR CONSULTATION: Chest pain. HISTORY: A 71-year-old female who presented to the [facility] complaining of chest discomfort. She states that she was under a lot of emotional stress. She is having trouble with her landlord. They have never gotten along. She denies any exertional chest pain during her normal daily activities cooking, cleaning the house. She was under so much stress that she smoked a cigarette, which helped her chest pain significantly. She also took a nitroglycerin at home, which helped her symptoms. She has no obstructive coronary artery disease documented. She had a heart catheter in 2014 which was interpreted as normal. She subsequently had a CT scan of her chest for another complaint, which showed some coronary artery calcifications. Because of this, she underwent a stress echocardiogram in June of this year which was within normal limits. She has diabetes mellitus, hypertension. PAST MEDICAL HISTORY: Atherosclerotic heart disease based on coronary artery calcifications noted on CT scan, obesity, diabetes mellitus, hypertension. REVIEW OF SYSTEMS: General: Denies fever, chills, night sweats. HEENT: No acute hearing or vision changes. Neck: No neck pain. Cardiovascular: As above. No exertional symptoms. No orthopnea or PND. No syncope, palpitations. Pulmonary: No cough or hemoptysis. GI: No nausea, vomiting. No tarry or bloody stools. : No dysuria, hematuria. Endocrine: Positive for diabetes. PHYSICAL EXAMINATION: VITAL SIGNS: Temperature 97.7, pulse 58, respirations 14 by my estimate during exam. Listed respirations varied from 18-20. Pulse ox was 98% on nasal cannula. The patient has actually been walking in the hallways with no symptoms. GENERAL: No apparent distress. HEENT: Normocephalic and atraumatic. NECK: Supple, obese. No JVD, no carotid bruits. CARDIOVASCULAR: Regular rhythm. No murmurs, rubs, or gallops. PULMONARY: Clear to auscultation. No accessory muscle use. ABDOMEN: Obese, nontender. Positive bowel sounds. EXTREMITIES: No edema. Radial and pedal pulses are grossly intact. LABORATORY DATA: See EMR for complete details. Cardiac enzymes are negative to date. Sodium 135, potassium 4.3. EKG with sinus rhythm, nonspecific ST-T-wave changes. ASSESSMENT AND PLAN: Chest pain likely secondary to stress/anxiety. Given her lack of symptoms with activity, I do not feel any further testing at this point is needed given her stress echocardiogram results in June. Obviously, with her diabetes she is a coronary risk equivalent and does have documented calcium on a CT scan of her chest of the coronary arteries, so I would continue to treat her aggressively with aspirin. I have mentioned in my prior notes statin therapy which apparently has not been initiated yet. I would place her on atorvastatin 40 mg, check her LDL cholesterol about 2 months afterwards, try to drive it down below 70; the lower the better. She states that she is in the process of trying to find a different residence to live due to the issues with her landlord. I think this would be beneficial. It is causing so much stress that it is interfering with her ability to just do her daily activities. We will follow up with her in the office in a month just to see how she is doing from a cardiac standpoint. I would recommend getting one last set of troponins. Her first 2 have been within normal limits. One is pending . Anderson Morrell, DO Date Time MTDD
== END 2016-10-30 14:25 | disposition home or self-care (01) ==
LOC: ER 20:06 → MEDSURG 22:10
PROVIDERS: ADMIT Family Medicine; ATTEND Family Medicine
DX: R07.9 Chest pain, unspecified (principal); I10 Essential (primary) hypertension; E11.9 Type 2 diabetes mellitus without complications
CPT/HCPCS: 71020; 80053; 80061; 82550; 82553; 84484; 85027; 93005; 93010; 94760; 99220; 99285

== ENCOUNTER 2016-11-18 12:08 | Day surgery (SDC) | payer MEDICARE, OTHER ==
[2016-11-18] MEDS ORDERED: PROPOFOL 10 MG/ML VIAL IV ONE (14:00)
[2016-11-18] MEDS ORDERED: MIDAZOLAM HCL 2MG/2ML VIAL IV ONE (14:00)
[2016-11-18] MEDS ORDERED: LIDOCAINE 2% MDV (20MG/ML) 20ML VIAL IV ONE (14:00)
--- NOTE | 2016-11-22 16:50 | Operative Note ---
DATE OF SURGERY: 11/18/2016 OPERATION: COLONOSCOPY to the cecum. INDICATION: Prior history of adenomatous polyps. The patient returns at this for surveillance. ANESTHESIA: Intravenous sedation was administered by the department of anesthesiology and included Diprivan titrated to effect. PROCEDURE: Following informed consent from this alert individual including a discussion of the risks and benefits of the procedure and an opportunity for the patient to ask questions, the patient was in the left lateral decubitus position. A digital rectal examination was performed. No abnormalities were noted. Following this, the Olympus TAC225 video colonoscope was inserted into the rectum without resistance. The rectal mucosa had a normal appearance with normal folds and distensibility. The colonoscope was advanced up through the colon to the level of the cecum without much difficulty. A few scattered diverticula were noted in the sigmoid colon. The cecum was defined by noting the ileocecal valve and cecal pouch. There was some small amount of retained liquid debris within the cecal pouch. As visualized, no large polyps or tumors were noted. From this point, the colonoscope was then withdrawn. No abnormalities were noted except for the diverticulosis in the sigmoid region. Retroflexion in the rectum endoscopically normal. The endoscope was straightened and withdrawn. The colon preparation was good. The patient tolerated the procedure well and was returned to the recovery area in stable condition. IMPRESSION: Sigmoid diverticulosis. No polyps noted. RECOMMENDATIONS: The patient was advised to have surveillance colonoscopy in 5 years' time or sooner should problems arise. Followup will be with Dr. Juan F Donnelly. As always, thank you for allowing me to participate in the care of your patient. Stevo Boone DO CC: Dr. Andrzej GARCIA
== END 2016-11-18 14:06 | disposition home or self-care (01) ==
LOC: HOP 12:08
PROVIDERS: ATTEND Internal Medicine Gastroenterology
DX: Z09 Encounter for follow-up examination after completed treatment for conditions other than malignant neoplasm (principal); Z86.010 Personal history of colon polyps; E11.9 Type 2 diabetes mellitus without complications; Z79.84 Long term (current) use of oral hypoglycemic drugs; K57.30 Diverticulosis of large intestine without perforation or abscess without bleeding